=== PATIENT | female | born 1995 | race Caucasian/White ===

== ENCOUNTER 2020-08-16 12:21 | Emergency (ER) | payer OTHER, SELFPAY ==
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
[2020-08-16 12:15] VITALS: BP 140/80; PULSE 75; RESP 22; TEMP 36.7; O2SAT 99
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
[2020-08-16] MEDS: MORPHINE SULFATE (*CRX) 4 MG/ML INJ IV PUSH ×2 (13:26→14:35)
[2020-08-16] MEDS: ONDANSETRON INJ 4 MG/2 ML VIAL IV PUSH (13:26)
--- NOTE | 2020-08-16 13:30 | PC.NURSE ---
Patient placed on heart monitor per request of Dr Mackey. on transport monitor until room with monitor becomes available.
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
--- NOTE | 2020-08-16 13:45 | PC.NURSE ---
Patient moved to room 19
[2020-08-16 13:48] VITALS: BP 120/68; PULSE 67
[2020-08-16 13:49] LABS: Basophils Percent Auto 0.2 % (0.2-1.2); Eosinophils Absolute Auto 0.1 K/mm3 (0-0.3); Eosinophils Percent Auto 0.4 % (0-4.4); Hematocrit 39.7 % (37.0-47.0); Hemoglobin 13.4 g/dL (12.0-15.0); Immature Granulocyte Absolute 0.12 K/mm3 (0.00-0.031); Immature Granulocyte Percent A 0.7 % (0-0.5); Lymphocytes Absolute Auto 1.63 K/mm3 (0.9-3.2); Lymphocytes Percent Auto 9.3 % (18.3-44.2); Mean Corpuscular HGB Conc 33.8 g/dl (32-36); Mean Corpuscular Hemoglobin 30.5 pg (26-34); Mean Corpuscular Volume 90.4 fl (80-100); Mean Platelet Volume 10.2 fl (7.4-10.4); Monocytes Absolute Auto 0.7 K/mm3 (0.1-0.6); Monocytes Percent Auto 3.9 % (2.6-8.5); Neutrophils Percent Auto 85.5 % (45.5-73.1); Platelet Count Result 277 k/mm3 (150-375); Red Blood Count 4.39 M/mm3 (4.2-5.4); Red Cell Distribution Width 12.6 % (11.5-14.5); White Blood Count 17.6 K/mm3 (4.5-10.0)
[2020-08-16 13:59] LABS: Prothrombin Time 13.4 Seconds (11.1-14.7)
[2020-08-16 14:00] LABS: Partial Thromboplastin Time 22.5 SECONDS (22.3-36.8)
[2020-08-16 14:04] LABS: Alanine Aminotransferase 38 U/L (4-35); Alkaline Phosphatase 62 U/L (38-126); Anion Gap 7 mmol/L (8-16); Aspartate Amino Transferase 46 U/L (14-36); Bilirubin,Total 0.3 mg/dL (0.2-1.3); Blood Urea Nitrogen 10 mg/dL (7-17); Calcium 8.9 mg/dL (8.4-10.2); Carbon Dioxide 26 mmol/L (22-30); Chloride 108 mmol/L (98-107); Estimated CRCL calculation 153 ml/min; Estimated Glomerular Filt Rate > 60; Glucose 128 mg/dL (65-105); Potassium 3.7 mmol/L (3.4-5.0); Sodium 141 mmol/L (137-145)
[2020-08-16 14:23] VITALS: BP 129/86; PULSE 66; RESP 17; O2SAT 100
[2020-08-16 14:26] LABS: Estimated CRCL calculation 181 ml/min; Estimated Glomerular Filt Rate > 60
[2020-08-16] MEDS: LACTATED RINGERS 1,000 ML 999 ML IV CONT (14:26)
--- NOTE | 2020-08-16 14:29 | PC.NURSE ---
mother contacted per wishes of patient. updated on patient's condition.
[2020-08-16 14:50] VITALS: BP 132/76; PULSE 85; RESP 17; O2SAT 99
--- NOTE | 2020-08-16 15:11 | PC.NURSE ---
[facility] accepted [facility] to [facility] ETA 1700 Trip # [id number] per [facility] and rn try other services [facility] no als truck available [facility] accepted transfer [facility] called to decline transfer due to no trucks available Ken juares accepted transfer ETA 20 min
[2020-08-16 15:29] VITALS: BP 120/76; PULSE 83; O2SAT 98
[2020-08-16 15:30] VITALS: PULSE 76; O2SAT 98
== END 2020-08-16 15:30 | disposition short-term general hospital (02) ==
PROVIDERS: Emergency Provider General Practice
DX: S22.42XA Multiple fractures of ribs, left side, initial encounter for closed fracture (principal); S27.0XXA Traumatic pneumothorax, initial encounter; S27.321A Contusion of lung, unilateral, initial encounter; S36.039A Unspecified laceration of spleen, initial encounter; S32.038A Other fracture of third lumbar vertebra, initial encounter for closed fracture; V43.52XA Car driver injured in collision with other type car in traffic accident, initial encounter
CPT/HCPCS: 36415; 70450; 71101; 71260; 72125; 73110; 74177; 80053; 81025; 85025; 85610; 85730; 86850; 86900; 86901; 96361; 96374; 96375; 96376; 99285; J2270; J2405; J7120; Q9967